=== PATIENT | female | born 1990 | race Hispanic/Latino ===

== ENCOUNTER 2017-10-05 20:05 | Inpatient (IN) | payer MEDICAID, OTHER, SELFPAY ==
[2017-10-05 20:46] VITALS: BMI 26.9
--- NOTE | 2017-10-05 21:55 | PDOC.EVN ---
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 The patient is 27 yo with prior at term, now with known Di/Di twins at 32 weeks and 5 days with complaints of discharge and irregular CTX. No VB, no LOF. Some blood tinged secretion per vagina noted. No fever, no trauma. ( Resident currently asking about recent sex). ROS: complete ROS done and as per HPI. Past Med: None Past Surg: none Allergies: None OB HX: X 1 Physical: Vitals reviewed, normal. Afebrile. NAD Abd gravid Pelvic- pending (after FFN if no recent sex). Monitors: Cat I with 2 FHTs noted. [place] with irregular ctx Q 2-4 minutes, low amplitute. Assessment: Threatened PTL at 32 weeks 5 days with Di/Di twins. Plan: 1. IVF hydrate 2. FFN if no contraindication 3. Check CX after FFN 4. Check VP3 due to dsch 5. Cath UA 6. Steroids for FLM due to twins and high risk for PTL.
[2017-10-05] MEDS ORDERED: Lactated Ringer's 1,000 ML IV SCH (22:00)
[2017-10-05] MEDS ORDERED: Betamet Acet/Betamet Na Ph 30 MG/5 ML VIAL IM SCH (22:15)
[2017-10-05 22:19] LABS: Bilirubin Negative (Negative); Blood, Urine Negative (Negative); Glucose, Urine (Dipstick) Negative (Negative); Ketone, Urine Negative (Negative); Nitrite Negative (Negative); Protein, Urine (Dipstick) Negative (Neg-Trace)
[2017-10-05 22:21] LABS: Bacteria/HPF None Seen HPF (None Seen); Hyaline Casts/LPF 4-6 HYALINE CAST LPF (0-3 Hyaline); RBC/HPF 0-3 HPF (0-3); Squamous Epithelial 0-3 HPF (0-3)
[2017-10-05] MEDS ORDERED: Ondansetron HCl/PF 4 MG/2 ML Vial IVP PRN ×2 (22:21→23:43)
[2017-10-05] MEDS ORDERED: Promethazine HCl 25 MG/ML VIAL IM PRN (22:21)
[2017-10-05] MEDS ORDERED: Bicitra 30 ML UDCUP ONE (22:23)
[2017-10-05] MEDS ORDERED: CEFAZOLIN/Water 2 GM/20 ML SYRINGE ONE (22:23)
--- NOTE | 2017-10-05 22:24 | PDOC.LDHP ---
Labor and Delivery H&P Chief complaint: other (Di/Di twins) HPI: Please see other event note just completed within the last 30 minutes for details. In brief, the patient is a with known Di/Di twins at 32 weeks 5 days with spontaneous labor. She was foud to be 4-5cm/60%/-1/BOWI by my exam. Bedside sono with twin A Breech. Current gestational age (weeks): 32 (5 days) Grav: 2 Para: 1 Current complications: di/di twins Abnormal US findings: Yes (Twin A Breech) Current medications: none Previous surgical history: none Allergies/Adverse Reactions: Allergies Allergy/AdvReac Type Severity Reaction Status Date / Time No Known Allergies Allergy Unverified 10/05/17 20:46 Social history: none - Physical Exam Vital signs reviewed and normal: yes Heart: RRR Lungs: CTAB Abdomen: gravid FHT: category 1 - Vaginal Exam cm dilated: 5 Effacement: 50% Station: -1 - Assessment L&D Assessment: labor (Twins) - Plan Plan: admit to L&D, to OR for section, other (Neonatology consulted. Steroids given 1 shot now although will not have time for benefit. Due to advanced cervical dilation at 5 cm with twin A breech (complete), I have discussed with her the risk of foot prolapse or cord with labor. Also, Twin A breech so CS is required in this case. Anesthesia aware. SCDs. To OR when ready. )
[2017-10-05] MEDS ORDERED: CEFAZOLIN/Water 2 GM/20 ML SYRINGE SLOW IVP SCH (22:30)
[2017-10-05] MEDS ORDERED: Bicitra 30 ML UDCUP PO SCH (22:30)
[2017-10-05] MEDS ORDERED: Morphine PF 1 MG/ML SYR ONE (22:33)
[2017-10-05 22:38] LABS: Hematocrit 28.6 % (36.0-47.0); Mean Platelet Volume 8.7 fL (7.4-10.4); Red Blood Cell (RBC) Count 3.23 mill/uL (4.20-5.40); White Blood Cell (WBC) Count 10.5 thou/uL (4.8-10.8)
[2017-10-05] MEDS ORDERED: Lidocaine 1% PF 5 ML VIAL ONE (23:04)
[2017-10-05] MEDS ORDERED: Fentanyl 250 MCG/5 ML VIAL ONE (23:06)
[2017-10-05] MEDS ORDERED: Ketamine 50 MG/ML VIAL ONE (23:07)
[2017-10-05] MEDS ORDERED: Midazolam HCl 2 mg/2 ml Vial ONE (23:08)
[2017-10-05] MEDS ORDERED: Ketorolac Tromethamine 30 MG/ML VIAL ONE (23:35)
[2017-10-05] MEDS ORDERED: Ondansetron HCl/PF 4 MG/2 ML Vial ONE (23:35)
[2017-10-05] MEDS ORDERED: HYDROmorphone 2 MG/ML VIAL SLOW IVP PRN (23:43)
[2017-10-05] MEDS ORDERED: Meperidine HCl/PF 25 MG/ML VIAL SLOW IVP PRN (23:43)
[2017-10-05] MEDS ORDERED: Ketorolac Tromethamine 30 MG/ML VIAL IVP SCH (23:45)
--- NOTE | 2017-10-06 00:54 | OP ---
DATE OF PROCEDURE: 10/05/2017 OPERATIVE NOTE TIME OF DELIVERY: 23:15 PREOPERATIVE DIAGNOSES: 1. Dichorionic-diamniotic twin gestation. 2. A 32 weeks and 5 days. 3. Active labor. 4. Twin A is breech. 5. A 5 cm dilation. POSTOPERATIVE DIAGNOSES: 1. Dichorionic-diamniotic twin gestation. 2. A 32 weeks and 5 days. 3. Active labor. 4. Twin A is breech. 5. A 5 cm dilation. 6. Status post primary low transverse . PROCEDURE: Primary low transverse via Pfannenstiel skin incision. SURGEON: Dr. Vazquez Cerrato. ANCHORMAN: 1. Dr. Alyse August. 2. Dr. Shavonne Thomas. ANESTHESIA: Spinal anesthetic block. FINDINGS: 1. Twin A was born, complete breech, delivered by breech delivery. 2. Twin B rotated to cephalic presentation after delivery of twin A that was delivered cephalic. 3. Clear amniotic fluid had rupture of both individual sacs. 4. Two placentas were noted after removal from the uterine cavity. 5. Hemostasis post-procedure. 6. Both babies were male. 7. Nuchal cord was noted x2 (1 on each child). 8. Each nuchal cord was reduced from each child. 9. Twin A, Apgars 9 and 9. Twin B, Apgars 7 and 9. 10. NICU present for delivery. ESTIMATED BLOOD LOSS: 1100 mL. IV FLUIDS: 1500 mL crystalloid. URINE OUTPUT: 900 mL of clear urine by Vo. COMPLICATIONS: None. COUNTS: Correct. DISPOSITION: To recovery room. LABORATORY: Umbilical arterial gases x2 were sent as well as the placenta to pathology. The preoperative hematocrit value of the patient was 28.6. Note, after fascial entry and just past peritoneal entry, the patient was starting to complain of brien n. For this reason, a small delay in our procedure occurred until the block took effect and until IV ketamine was administered by our Anesthesia team. Additionally, about 20 mL of 1% lidocaine without epinephrine was placed into the cavity for local use. TECHNIQUE: After proper informed consent was explained to the patient, she was transported to labor and delivery operating room where she was placed under spinal anesthetic block. Patient's abdomen wa s prepped and draped in the usual sterile fashion. A Pfannenstiel skin incision was made in the usua l manner and Bovie cautery was used to dissect the subcutaneous tissue down to the level of fascia. Fascia was entered in a transverse fashion using Bovie cautery on cut mode. Rectus muscles were sepa rated out in the midline. The peritoneum was entered with blunt dissection as well as sharp dissecti on. At this point, the patient complained of some pain and we took a small break in our procedure to let the spinal anesthetic regain the level. Anesthesia also administered IV ketamine at this time. We administered local anesthesia directly into the wound for symptomatic relief of discomfort. We t clementine proceeded with a low transverse hysterotomy with twin A being breech delivered in breech extracti on without complication. Mauriceau maneuver for the head was not necessary. Nuchal cord x1 wa s reduced. Artificial rupture of membranes was done right before delivery and it was clear. T win B was delivered shortly after twin A and that sac was ruptured with clear fluid being noted as we ll. The baby was born in cephalic with a nuchal cord, which was reduced as well. Each cord was clam ped, transected, and the segment was sent off for cord analysis. Cord blood from each cord was also collected. The placentas were removed and 2 placentas were identified. A dry laparotomy sponge was used curettage the uterine cavity. A #1 Monocryl was used to close the hysterotomy in a running lock ing fashion. A single layer closure was done. Bladder flap formation was not performed nor with douglas sure of the bladder flap. Copious irrigation was then performed and after confirming hemostasis and after confirming that all counts were correct, the fascia was closed with 0 PDS suture x2 in a runnin g nonlocking fashion. It is important to note that prior to fascial closure. We did reapproximate t he rectus muscles in the midline with two separate 2-0 chromic mattress sutures (horizontal mattress) . Fascia was closed in the usual manner and the subcutaneous tissue was copiously irrigated. After confirming hemostasis, the skin was closed with leta in the usual fashion. Subcutaneous closure w as not needed as the subcutaneous tissue was less than 2 cm. Patient's vault and vagina was evacuate d of all clots after we were done with the procedure and after the abdominal incision had been dresse d. Patient was transported to recovery in good and stable condition.
[2017-10-06] MEDS ORDERED: Naloxone HCl 0.4 mg/ml Vial IV PRN (01:03)
[2017-10-06] MEDS ORDERED: diphenhydrAMINE 50 MG/ML VIAL IVP PRN (01:03)
[2017-10-06] MEDS ORDERED: Eucerin (Mineral Oil/Petrolatum,White) 30 gm Jar TOP PRN (01:03)
[2017-10-06] MEDS ORDERED: Ketorolac Tromethamine 30 MG/ML VIAL IVP PRN (01:03)
[2017-10-06] MEDS ORDERED: Promethazine HCl 25 MG SUPP PR PRN (01:03)
[2017-10-06] MEDS ORDERED: Ondansetron HCl/PF 4 MG/2 ML Vial IVP PRN (01:03)
[2017-10-06] MEDS ORDERED: Naloxone HCl 0.4 mg/ml Vial IVP PRN ×2 (01:03)
[2017-10-06] MEDS ORDERED: Promethazine HCl 25 MG/ML VIAL IM PRN (01:03)
[2017-10-06] MEDS ORDERED: Diprivan 0 ML ONE (01:05)
[2017-10-06] MEDS ORDERED: Fentanyl 100 MCG/2 ML VIAL ONE (01:06)
[2017-10-06] MEDS ORDERED: Oxytocin 10 UNITS/ML VIAL ONE (01:06)
[2017-10-06] MEDS ORDERED: Communication Order-Pharmacy FS SCH (01:15)
[2017-10-06] MEDS ORDERED: LR / Pitocin 40 units/1000 ml 1,000 ML ONE (01:35)
[2017-10-06] MEDS ORDERED: diphenhydrAMINE 25 MG CAP PO PRN (02:04)
[2017-10-06] MEDS ORDERED: Acetaminophen 325 MG TAB PO PRN (02:04)
[2017-10-06] MEDS ORDERED: Adacel (T-DAP) 0.5 ML VIAL IM ONE (02:04)
[2017-10-06] MEDS ORDERED: Propofol 200 MG/20 ML VIAL ONE (03:00)
--- NOTE | 2017-10-06 04:31 | PDOC.EVN ---
Event Note - Event Note Event Note: 5 hours post-op s/p Pain well controlled, patient reports a small amount of abdominal pain, but otherwise has no complaints. Minimal vaginal bleeding. Afebrile, vital signs stable, NAD Fundus firm at 3cm above the umbilicus Abdominal dressing in place c/d/i -continue routine post- care <Shavonne Thomas - Last Filed: 10/06/17 04:29> - Event Note Event Note: 10/06/17 @ 0604: Postop Day 0 s/p Primary CS for twins. Doing well. S. Pain controlled. O. Vitals reviewed. Original dressing in place. (Skin stapled). Physical: NAD, abd without distension Assessment: S/P primary CS at 32 weeks for PTL Twin A Breech. Plan: 1. Routine postop care 2. Check postop Hct. 3. Ambulate when ready. 4. SCDs. <Vazquez Cerrato - Last Filed: 10/06/17 06:04>
[2017-10-06 05:05] LABS: Mean Platelet Volume 8.7 fL (7.4-10.4); Red Blood Cell (RBC) Count 3.17 mill/uL (4.20-5.40); White Blood Cell (WBC) Count 14.5 thou/uL (4.8-10.8)
--- NOTE | 2017-10-06 06:06 | PDOC.EVN ---
Event Note - Event Note Event Note: POSTOP D 0: postop Hct 28...was 28.6 prior. I suspect it will slightly decrease once equilibrated. Recheck this PM.
--- NOTE | 2017-10-06 06:32 | PDOC.PP ---
Post Progress Note Post Day #: 1 Subjective: Patient doing well this morning. Reports no pain. Lochia wnl. Javier in place. Tolerating PO intake. PO intake tolerated: yes Flatus: no Ambulation: no Vital Signs (12 hours) Temp Pulse Resp BP Pulse Ox 10/06/17 04:05 98.2 F 69 18 101/58 L 99 10/06/17 02:51 97.8 F 63 18 102/57 L 97 10/06/17 01:47 97.4 F L 65 18 106/57 L 97 10/06/17 00:55 98.6 F 10/05/17 20:37 98.6 F 92 18 108/59 L 10/05/17 20:30 98.6 F 92 18 Weight Weight 68.946 kg - Physical Examination General: NAD Cardiovascular: no m/r/g, RRR Respiratory: clear to auscultation bilaterally, non-labored breathing Abdominal: + bowel sounds, lochia, no distention, appropriately TTP Fundus firm & at: 1cm below umbilicus Extremities: negative homans (B) Skin: CS incision dry & intact Neurological: no gross focal deficits Psychiatric: A&Ox3, normal affect Result Diagrams: 10/06/17 04:51 Additional Labs: Post Labs Blood Type O POSITIVE 10/05/17 21:00 Hep Bs Antigen Non-Reactive S/CO (NonReactive) 10/05/17 21:00 (1) delivery delivered Code(s): O82 - ENCOUNTER FOR DELIVERY WITHOUT INDICATION Status: Acute Comment: Postop day 0. Recovering well. Dressing in place. Will remove javier today and encourage ambulation. Pain well controlled. H/H 9.3, will recheck today at 1400. (2) Dichorionic diamniotic twin gestation Code(s): O30.049 - TWIN , DICHORIONIC/DIAMNIOTIC, UNSP TRIMESTER Status: Acute (3) Bacterial vaginosis Code(s): N76.0 - ACUTE VAGINITIS; B96.89 - OTH BACTERIAL AGENTS THE CAUSE OF DISEASES CLASSD ELSWHR Status: Acute (4) Yeast infection of the vagina Code(s): B37.3 - CANDIDIASIS OF VULVA AND VAGINA Status: Acute
[2017-10-06] MEDS: Prenatal Vitamin 1 TAB PO SCH (08:15)
[2017-10-06] MEDS: Ferrous Sulfate 325 MG TAB PO SCH ×2 (08:15→21:45)
[2017-10-06] MEDS: HYDROcodone/Acetaminophen 5/325 mg Tablet PO PRN (14:24)
[2017-10-06 17:12] LABS: Hematocrit 28.1 % (36.0-47.0)
[2017-10-06] MEDS: Ibuprofen 800 MG TAB PO SCH (21:45)
[2017-10-07] MEDS: Ibuprofen 800 MG TAB PO SCH ×3 (05:08→20:31)
--- NOTE | 2017-10-07 06:39 | PDOC.PP ---
Post Progress Note Post Day #: 1 Subjective: Patient is doing well this morning. Pain is well controlled. Was able to ambulate yesterday and go see her babies in the NICU. Is pumping without difficulty. Patient is passing gas but no BM. Lochia scant. Denies abnormal vaginal discharge. PO intake tolerated: yes Flatus: yes Ambulation: yes Vital Signs (12 hours) Temp Pulse Resp BP Pulse Ox 10/07/17 04:55 97.6 F 69 16 93/55 L 10/06/17 20:13 98.4 F 74 16 95/50 L 97 Weight Weight 68.946 kg - Physical Examination General: NAD Cardiovascular: no m/r/g, RRR Respiratory: clear to auscultation bilaterally, non-labored breathing Abdominal: + bowel sounds, lochia, no distention, appropriately TTP Fundus firm & at: 1cm below umbilicus Extremities: negative homans (B) Skin: CS incision dry & intact Neurological: no gross focal deficits Psychiatric: A&Ox3, normal affect Result Diagrams: 10/06/17 17:04 Additional Labs: Post Labs Blood Type O POSITIVE 10/05/17 21:00 Hep Bs Antigen Non-Reactive S/CO (NonReactive) 10/05/17 21:00 (1) delivery delivered Code(s): O82 - ENCOUNTER FOR DELIVERY WITHOUT INDICATION Status: Acute Comment: Postop day 1. Recovering well. Dressing in place, incision healing nicely. Pain well controlled. H/H 9.3 --> 9.0, stable and asymptomatic , will recheck H/H tomorrow morning. Continue Fe and PNV. (2) Dichorionic diamniotic twin gestation Code(s): O30.049 - TWIN , DICHORIONIC/DIAMNIOTIC, UNSP TRIMESTER Status: Acute (3) Bacterial vaginosis Code(s): N76.0 - ACUTE VAGINITIS; B96.89 - OTH BACTERIAL AGENTS THE CAUSE OF DISEASES CLASSD ELSWHR Status: Acute Comment: Asymptomatic, will treat if becomes symptomatic. Will likely clear on its own. (4) Yeast infection of the vagina Code(s): B37.3 - CANDIDIASIS OF VULVA AND VAGINA Status: Acute Comment: Asymptomatic, will treat if becomes symptomatic. Will likely clear on its own. (5) Hypotension Status: Acute Comment: Baseline BP is low 100's/60's, most recent BP 90's/50' s. Patient asymptomatic. Encouraged PO intake and will continue to monitor. <Shweta Burger - Last Filed: 10/07/17 11:33> Vital Signs (12 hours) Temp Pulse Resp 10/08/17 04:00 98.8 F 77 16 10/08/17 00:00 98.8 F 77 16 Weight Weight 152 lb Result Diagrams: 10/08/17 05:20 Additional Labs: Post Labs Blood Type O POSITIVE 10/05/17 21:00 Hep Bs Antigen Non-Reactive S/CO (NonReactive) 10/05/17 21:00 <Kendell Baker - Last Filed: 10/08/17 08:45> Attending Addendum - Attending Addendum I personally evaluated the patient and discussed the management with Dr. Burger. I agree with the History, Examination, Assessment and Plan documented above with any addition or exceptions noted below. <Kendell Baker - Last Filed: 10/08/17 08:45>
[2017-10-07] MEDS: Prenatal Vitamin 1 TAB PO SCH (08:23)
[2017-10-07] MEDS: Ferrous Sulfate 325 MG TAB PO SCH ×2 (08:23→20:31)
[2017-10-07] MEDS: Milk Of Magnesia 30 ML UDCUP PO PRN (17:14)
[2017-10-07] MEDS: Docusate Calcium (SURFAK) 240 MG CAP PO SCH (20:31)
[2017-10-08 05:33] LABS: Hematocrit 25.3 % (36.0-47.0)
[2017-10-08] MEDS: Ibuprofen 800 MG TAB PO SCH ×3 (05:59→21:09)
--- NOTE | 2017-10-08 06:54 | PDOC.PP ---
Post Progress Note Post Day #: 2 Subjective: Pt is feeling well this morning. Pain is well controlled. She is ambulating without problem. She is consistently producing a few oz of milk, however is concerned about breast milk production. Pt is urinating w/o problem and passing gas, however no BM. Scant lochia. PO intake tolerated: yes Flatus: yes Ambulation: yes Vital Signs (12 hours) Temp Pulse Resp 10/08/17 04:00 98.8 F 77 16 10/08/17 00:00 98.8 F 77 16 10/07/17 20:00 98.8 F 77 16 Weight Weight 68.946 kg - Physical Examination General: NAD Cardiovascular: no m/r/g, RRR Respiratory: clear to auscultation bilaterally Abdominal: + bowel sounds, lochia, no distention, appropriately TTP Fundus firm & at: 2 cm below umbilicus Extremities: negative homans (B) Skin: CS incision dry & intact, no rash Neurological: no gross focal deficits Psychiatric: A&Ox3, normal affect Result Diagrams: 10/08/17 05:20 Additional Labs: Post Labs Blood Type O POSITIVE 10/05/17 21:00 Hep Bs Antigen Non-Reactive S/CO (NonReactive) 10/05/17 21:00 (1) delivery delivered Code(s): O82 - ENCOUNTER FOR DELIVERY WITHOUT INDICATION Status: Acute Comment: Postop day 2. Recovering well. Dressing in place, incision is clean without drainage or redness. Pain well controlled. H/H 9.0 to 8.3, stable and asymptomatic, will recheck H/H tomorrow morning. This is not unexpected considering EBL. Pt is not tachycardic and this morning's BP was 100' s/70's. Continue Fe and PNV. (2) Dichorionic diamniotic twin gestation Code(s): O30.049 - TWIN , DICHORIONIC/DIAMNIOTIC, UNSP TRIMESTER Status: Resolved (3) Hypotension Status: Acute QualifierTitle: Hypotension type: unspecified hypotension type Qualified Code(s): I95.9 - Hypotension, unspecified Comment: Baseline BP is low 100's/60's, which is where she was this morning. Previously was 90's/50's. Patient asymptomatic. Encouraged PO intake and will continue to monitor. (4) Yeast infection of the vagina Code(s): B37.3 - CANDIDIASIS OF VULVA AND VAGINA Status: Acute Comment: Asymptomatic, will treat if becomes symptomatic. Will likely clear on its own. (5) Bacterial vaginosis Code(s): N76.0 - ACUTE VAGINITIS; B96.89 - OTH BACTERIAL AGENTS THE CAUSE OF DISEASES CLASSD ELSWHR Status: Acute Comment: Asymptomatic, will treat if becomes symptomatic. Will likely clear on its own. (6) Anemia, Code(s): O90.81 - ANEMIA OF THE PUERPERIUM Status: Acute Comment: EBL during c section was 1200. Hb at time of admission was 9.5. Hb of 8.3 is not unexpected. Pt has no orthostatic symptoms, is ambulating well, and is not tachycardic. Continue to monitor and give Fe as above <Raymundo Bui - Last Filed: 10/08/17 06:51> Vital Signs (12 hours) Temp Pulse Resp 10/08/17 04:00 98.8 F 77 16 10/08/17 00:00 98.8 F 77 16 Weight Weight 152 lb Result Diagrams: 10/08/17 05:20 Additional Labs: Post Labs Blood Type O POSITIVE 10/05/17 21:00 Hep Bs Antigen Non-Reactive S/CO (NonReactive) 10/05/17 21:00 - Assessment/Plan 10/08/17 @ 0800: Faculty: Postop Day 2 today, we will keep until POD 3 tomorrow. Hct stable and ASX from mild anemia. For now, doing well. Agree with note. Patient does desire to go home today, so we will address. <Vazquez Cerrato - Last Filed: 10/08/17 08:04>
[2017-10-08] MEDS: Prenatal Vitamin 1 TAB PO SCH (09:12)
[2017-10-08] MEDS: Ferrous Sulfate 325 MG TAB PO SCH ×2 (09:12→21:09)
[2017-10-08] MEDS: Docusate Calcium (SURFAK) 240 MG CAP PO SCH ×2 (09:13→21:09)
--- NOTE | 2017-10-08 10:01 | PDOC.EVN ---
Event Note - Event Note Event Note: 10/08/17 @ 1000: We will redraw HH at 0300 and if continues to be stable, DC home AM. Last HCT 25, originally 28. Incision C/D/I/
[2017-10-08] MEDS: HYDROcodone/Acetaminophen 5/325 mg Tablet PO PRN (14:06)
[2017-10-08] MEDS: Simethicone Chewable 80 MG TAB PO SCH (18:19)
[2017-10-08] MEDS ORDERED: Lanolin Ointment 7 GM TUBE TOP PRN (20:09)
[2017-10-08] MEDS: Milk Of Magnesia 30 ML UDCUP PO PRN (21:10)
[2017-10-09] MEDS: Simethicone Chewable 80 MG TAB PO SCH ×3 (00:10→12:51)
[2017-10-09] MEDS: HYDROcodone/Acetaminophen 5/325 mg Tablet PO PRN ×2 (02:58→12:51)
[2017-10-09 05:24] LABS: Hematocrit 24.9 % (36.0-47.0)
[2017-10-09] MEDS: Ibuprofen 800 MG TAB PO SCH ×2 (06:17→12:52)
[2017-10-09] MEDS ORDERED: Bisacodyl 10 MG SUPP PR PRN (06:20)
--- NOTE | 2017-10-09 06:38 | PDOC.PP ---
Post Progress Note Post Day #: 3 Subjective: No new complaints.No BM yet, limited flatus. PO intake tolerated: yes Flatus: no Ambulation: yes Vital Signs (12 hours) Temp Pulse Resp BP Pulse Ox 10/08/17 20:00 97.7 F 76 18 108/53 L 98 Weight Weight 152 lb - Physical Examination General: NAD Cardiovascular: no m/r/g Respiratory: clear to auscultation bilaterally Abdominal: appropriately TTP Psychiatric: A&Ox3 Result Diagrams: 10/09/17 05:10 Additional Labs: Post Labs Blood Type O POSITIVE 10/05/17 21:00 Hep Bs Antigen Non-Reactive S/CO (NonReactive) 10/05/17 21:00 (1) Anemia, Code(s): O90.81 - ANEMIA OF THE PUERPERIUM Status: Acute Comment: EBL during c section was 1200. Hb at time of admission was 9.5. Hb of 8.3 is not unexpected. Pt has no orthostatic symptoms, is ambulating well, and is not tachycardic. Continue to monitor and give Fe as above (2) delivery delivered Code(s): O82 - ENCOUNTER FOR DELIVERY WITHOUT INDICATION Status: Acute Comment: Postop day 2. Recovering well. Dressing in place, incision is clean without drainage or redness. Pain well controlled. H/H 9.0 to 8.3, stable and asymptomatic, will recheck H/H tomorrow morning. This is not unexpected considering EBL. Pt is not tachycardic and this morning's BP was 100' s/70's. Continue Fe and PNV. - Assessment/Plan Plan: 1. GI- no real distension. We will give dulcolax RR and await BM. Poss home this pm 2. Incision- leta in, out at POD 5 or 7 outpatient 3. No evidence distension. 4. HCT- no evidence large drop in HCT and NO SYMPTOMS. No need for transfusion at this time. Oral Fe. PM discharge at 1400.
[2017-10-09] MEDS: Docusate Calcium (SURFAK) 240 MG CAP PO SCH (08:12)
[2017-10-09] MEDS: Prenatal Vitamin 1 TAB PO SCH (08:12)
[2017-10-09] MEDS: Ferrous Sulfate 325 MG TAB PO SCH (08:12)
[2017-10-09 08:58] VITALS: BP 113/54; TEMP 98.4
== END 2017-10-09 13:40 | disposition home or self-care (01) | DRG 765 ==
LOC: L&D/OP 20:05 → L&D 22:23 → 3SW 10-06 01:58
PROVIDERS: ADMIT Obstetrics & Gynecology; ATTEND Obstetrics & Gynecology
PROC: 10D00Z1 Extraction of Products of Conception, Low, Open Approach (ICD-10-PCS; principal; 2017-10-05)
PROC: 3E0R3BZ Introduction of Anesthetic Agent into Spinal Canal, Percutaneous Approach (ICD-10-PCS; 2017-10-05)
PROC: 4A0HXCZ Measurement of Products of Conception, Cardiac Rate, External Approach (ICD-10-PCS; 2017-10-05)
PROC: 10907ZC Drainage of Amniotic Fluid, Therapeutic from Products of Conception, Via Natural or Artificial Opening (ICD-10-PCS; 2017-10-05)
DX: O60.14X2 Preterm labor third trimester with preterm delivery third trimester, fetus 2 (principal); O98.82 Other maternal infectious and parasitic diseases complicating childbirth; O30.043 Twin pregnancy, dichorionic/diamniotic, third trimester; O90.81 Anemia of the puerperium; O32.1XX1 Maternal care for breech presentation, fetus 1; O32.8XX1 Maternal care for other malpresentation of fetus, fetus 1; O99.89 Other specified diseases and conditions complicating pregnancy, childbirth and the puerperium; I95.9 Hypotension, unspecified; D64.9 Anemia, unspecified; B37.3 Candidiasis of vulva and vagina; Z37.2 Twins, both liveborn; Z3A.32 32 weeks gestation of pregnancy
CPT/HCPCS: 36415; 81001; 82731; 85014; 85018; 85027; 86780; 86850; 86900; 86901; 87340; 87480; 87510; 87660; 88307; A4353; J0702; J1885; J2001; J2250; J2274; J2405; J2590; J2704; J3010